=== PATIENT | male | born 1990 | race African-American/Black ===

== ENCOUNTER 2020-03-24 20:01 | Emergency (ER) | payer BC, MEDICAID ==
[~2020-03-24] VITALS: Ht 180.3 cm; Wt 70.8 kg
[~2020-03-24 20:01] MED LIST: IBUPROFEN600 MG PO; NO MEDS; VICODIN 5-5001 EACH PO
--- NOTE | 2020-03-24 20:10 | NUR ---
ED Nurse Note: Pt walked into ED for c/o R leg/knee pain for the past three weeks. Pt states he was running and tripped and fell landing on the R leg. Pt also reports swelling to R knee and is concerned there is fluid in there. Mild swelling to R knee noted, no open wound. Pt also states he is on his feet for extended amounts of time at work which exacerbates the pain. Pt is aaox4, breathing is normal and unlabored. Pt is ambulatory with steady gait.
[2020-03-24 20:15] VITALS: BP 150/70
--- NOTE | 2020-03-24 20:19 | Emergency Room Report ---
History of Present Illness General Chief Complaint: Lower Extremity Injury Source: Patient Present Illness HPI Disclaimer: Please note that this report is being documented using thesweetlinkON technology. This can lead to erroneous entry secondary to incorrect interpretation by the dictating instrument. HPI: 29-year-old male presents for evaluation of knee pain. The patient was running and tripped 3 weeks ago falling and twisting his right knee. He noted pain and swelling. He has been applying ice, resting, compressing with some improvement in symptoms. He noticed his leg will lock up and occasionally swell but then go down again. He currently denies pain but reports some stiffness. Denies numbness or tingling. Denies joint instability. No new injury reported. Allergies: Coded Allergies: No Known Allergies (Unverified , 07/15/12) COVID-19 Screening Contact w/high risk pt: No Recent Travel to affected area: No Experienced COVID-19 symptoms?: No COVID-19 Testing performed TELEVISION ANCHOR: No Nursing Documentation-PMH Hx Asthma: Yes Physical Exam Vital Signs Date Time Temp Pulse Resp B/P (MAP) Pulse Ox O2 Delivery O2 Flow Rate FiO2 03/24/20 20:07 98.8 73 19 150/70 (96) 96 Room Air General: Awake and alert, no acute distress HEENT: NC/AT. EOMI. Resp: Normal work of breathing Skin: Intact. No abrasions, laceration or rash over the exposed skin MSK: Normal tone and bulk. Moving all extremities. No obvious deformity. Patella in anatomic position. Mild tenderness over the medial aspect of the right knee. No effusion. No instability on varus or valgus testing. Neuro: Awake and alert. Mentating appropriately Medical Decision Making Diagnostic Impression: Primary Impression: Knee pain ER Course This a 29-year-old male presenting for evaluation of right knee pain after an injury 3 weeks ago. An x-ray was obtained to rule out fracture. No fracture dislocation or other osseous abnormality noted. No significant effusion. May have a ligamentous MCL injury or meniscal tear. I discussed this with the patient he will follow-up on an outpatient basis with orthopedic clinic. He was placed in an Boo wrap and will continue using NSAIDs and ice. Note for work was provided. We discussed reasons to return to the emergency department. He understands and agrees with this treatment plan. Other X-Ray Diagnostic Results Other X-Ray Diagnostic Results : X-Ray ordered: Right knee # of Views/Limited Vs Complete: 3 View Indication: Pain EP Interpretation: Yes Interpretation: no dislocation, no soft tissue swelling Impression: No acute disease Electronically Signed by: Electronically signed by Dr. Byron Prasad Last Vital Signs Date Time Temp Pulse Resp B/P (MAP) Pulse Ox O2 Delivery O2 Flow Rate FiO2 03/24/20 20:07 98.8 73 19 150/70 (96) 96 Room Air Disposition: HOME, SELF-CARE Condition: Stable Scripts Ibuprofen* (MOTRIN*) 600 Mg Tablet 600 MG ORAL Q6H PRN for For Pain, #30 TAB 0 Refills Prov: Byron Prasad MD 03/24/20 Byron Prasad MD Mar 24, 2020 20:19
[2020-03-24] MEDS ORDERED: IBUPROFEN600 M1 ORAL (21:00)
--- NOTE | 2020-03-24 21:00 | NUR ---
ED Nurse Note: Boo bandaged applied to pt leg/knee as ordered by ERMD. Pt states it feels better with bandage applied.
[2020-03-24 21:15] VITALS: BP 137/75
--- NOTE | 2020-03-24 21:15 | NUR ---
ER DISCHARGE NOTE: Patient is cleared to be discharged per ERMD, pt is aox4, on room air, with stable vital signs. pt was given dc instructions, pt was able to verbalize understanding, pt id band removed. pt is able to ambulate with steady gait. pt took all belongings.
--- NOTE | 2020-03-25 14:36 | Diagnostic Imaging Report ---
Indication: Trauma, pain, status post fall Technique: 3 views of the right knee Comparison: None Findings: There is a questionable small suprapatellar effusion. No acute fractures. No dislocations. The joint spaces are preserved Impression: Possible small effusion. No acute bony trauma
== END 2020-03-24 21:15 | disposition home or self-care (01) ==
LOC: EMR 20:22
DX: M25.561 Pain in right knee (principal)
CPT/HCPCS: 99283